=== PATIENT | male | born 2005 | race Hispanic/Latino ===

== ENCOUNTER 2024-12-24 10:50 | Emergency (ER) | payer OTHER ==
[~2024-12-24] VITALS: Ht 175.3 cm; Wt 90.5 kg
[2024-12-24 13:26] LABS: BASO # 0.1 10^3/uL (0.0-0.2); BASO % 0.7 % (0.0-1.0); EOS # 0.1 10^3/uL (0.0-0.5); EOS % 0.7 % (0.0-3.0); LYMPH # 2.7 10^3/uL (1.5-5.0); LYMPH % 37.7 % (24.0-44.0); MONO # 0.5 10^3/uL (0.0-0.8); MONO % 7.2 % (2.0-8.0); NEUTROPHILS # 3.9 10^3/uL (1.5-8.5); NEUTROPHILS % 53.4 % (36.0-66.0); PLATELET COUNT, AUTOMATED 290 10^3/uL (150-450)
[2024-12-24 13:54] LABS: ALT/SGPT 32 U/L (7.0-40); AST/SGOT 39 U/L (<34); CALCIUM LEVEL 9.6 MG/DL (8.5-10.1); CARBON DIOXIDE LEVEL 28 MMOL/L (20-31); CHLORIDE LEVEL 105 MMOL/L (98-107); CK-MB VALUE MASS 3.4 NG/ML (<3.6); CREATININE FOR GFR 0.98 MG/DL (0.70-1.30); GLOMERULAR FILTRATION RATE > 90.0 (>60); POTASSIUM SERUM 4.8 MMOL/L (3.5-5.1); SODIUM LEVEL 139 MMOL/L (136-145)
[2024-12-24 14:00] LABS: FREE T4 1.60 NG/DL (0.83-1.43)
[2024-12-24 14:05] LABS: CPK CREATINE PHOSPHOKINASE 708 U/L (46-171); MB/CK RELATIVE INDEX 0.48 (< OR =4)
[2024-12-24 14:11] VITALS: TEMP 97.5
[2024-12-24] MEDS ORDERED: ISOVUE-370 76% 100 ML VIAL As Ordered ONE (14:23)
[2024-12-24 15:15] LABS: CK-MB VALUE MASS 3.2 NG/ML (<3.6)
[2024-12-24 15:16] LABS: CPK CREATINE PHOSPHOKINASE 641.0 U/L (46-171); MB/CK RELATIVE INDEX 0.49 (< OR =4)
[2024-12-24 16:01] VITALS: BP 102/46
[2024-12-24 16:20] VITALS: O2SAT 100
[2024-12-24 16:41] LABS: CK-MB VALUE MASS 3.0 NG/ML (<3.6)
[2024-12-24 16:42] LABS: CPK CREATINE PHOSPHOKINASE 586.0 U/L (46-171); MB/CK RELATIVE INDEX 0.51 (< OR =4)
== END 2024-12-24 17:34 | disposition left against medical advice (07) ==
LOC: M ED 10:50
DX: R07.9 Chest pain, unspecified (principal); Z53.9 Procedure and treatment not carried out, unspecified reason
CPT/HCPCS: 71046; 71275; 80048; 80076; 82550; 82553; 83690; 84439; 84443; 84484; 85025; 93005; 93041; 99285; Q9967

== ENCOUNTER → 2025-02-10 | Outpatient (CLI) | payer OTHER | LOC: M CARPUL 09:24 | PROVIDERS: ATTEND Internal Medicine Cardiovascular Disease | DX: R07.9 Chest pain, unspecified (principal); I44.0 Atrioventricular block, first degree ==